=== PATIENT | female | born 1990 | race Caucasian/White ===

== ENCOUNTER 2019-06-03 18:23 | Emergency (ER) | payer SELFPAY ==
[2019-06-03] MEDS ORDERED: Adacel (T-DAP) 0.5 ML SYRINGE ONE (18:35)
--- NOTE | 2019-06-03 18:58 | RAD ---
RIGHT FOOT RADIOGRAPHS THREE VIEWS: 06/03/2019 PROVIDED CLINICAL HISTORY: Pain, status post injury. FINDINGS: There is no evidence for fracture or acute osseous abnormality. If there is persistent clinical conc renetta, conservative management and follow-up imaging are advised. IMPRESSION: As above. POS: [facility]
[2019-06-03] MEDS ORDERED: Triple Antibiotic Oint 1 GM Packet ONE (19:24)
== END 2019-06-03 19:30 | disposition home or self-care (01) ==
LOC: NAV ERS 18:23
DX: S90.31XA Contusion of right foot, initial encounter (principal); F17.210 Nicotine dependence, cigarettes, uncomplicated; Z23 Encounter for immunization; W20.8XXA Other cause of strike by thrown, projected or falling object, initial encounter
CPT/HCPCS: 90471; 90715